=== PATIENT | male | born 2000 | race Two or more races ===

== ENCOUNTER 2023-09-07 08:23 | Emergency (ER) | payer OTHER ==
[~2023-09-07] VITALS: Ht 172.7 cm; Wt 68.9 kg
[2023-09-07 08:27] VITALS: O2SAT 99
[2023-09-07] MEDS ORDERED: LIDOCAINE HCL 1% 20 ML VIAL ONE (08:41)
[2023-09-07] MEDS ORDERED: NEOMY/BACITRA/POLYMYXIN B OINT UD PACKET TP ONE (08:46)
[2023-09-07] MEDS ORDERED: TDAP DIPH,PERTUSS,TET VAC/PF 0.5 ML DISP.SYRIN IM ONE (08:47)
[2023-09-07] MEDS ORDERED: IBUP-1955 PO (08:48)
[2023-09-07] MEDS: TDAP DIPH,PERTUSS,TET VAC/PF 0.5 ML DISP.SYRIN IM ONE (08:53)
[2023-09-07] MEDS: NEOMY/BACITRA/POLYMYXIN B OINT UD PACKET TP ONE (08:53)
[2023-09-07] MEDS: LIDOCAINE HCL 1% 20 ML VIAL IJ ONE (08:55)
== END 2023-09-07 09:23 | disposition home or self-care (01) ==
LOC: ER 08:23
DX: S01.511A Laceration without foreign body of lip, initial encounter (principal); Z79.899 Other long term (current) drug therapy; Y04.8XXA Assault by other bodily force, initial encounter; Y93.89 Activity, other specified; Y92.89 Other specified places as the place of occurrence of the external cause; Y99.8 Other external cause status
CPT/HCPCS: 12011; 90471; 90715; 99283; J3490; A4606; A4663